=== PATIENT | male | born 1985 | race African-American/Black ===

== ENCOUNTER 2018-07-24 07:52 | Emergency (ER) | payer OTHER ==
[~2018-07-24] VITALS: Ht 172.7 cm; Wt 81.0 kg
[2018-07-24] MEDS ORDERED: NAPR-856 PO (08:29)
[2018-07-24] MEDS ORDERED: BACL20TA PO (08:29)
[2018-07-24] MEDS ORDERED: KETOROLAC 30 MG/1 ML IM ONE (08:30)
[2018-07-24] MEDS ORDERED: KETOROLAC 30 MG/1 ML ONE (08:31)
[2018-07-24 10:03] VITALS: BP 158/82
== END 2018-07-24 10:06 | disposition home or self-care (01) ==
LOC: ED 09:50
DX: S46.911A Strain of unspecified muscle, fascia and tendon at shoulder and upper arm level, right arm, initial encounter (principal); S39.012A Strain of muscle, fascia and tendon of lower back, initial encounter; X50.1XXA Overexertion from prolonged static or awkward postures, initial encounter; Y93.89 Activity, other specified; Y92.69 Other specified industrial and construction area as the place of occurrence of the external cause; Y99.0 Civilian activity done for income or pay
CPT/HCPCS: 96372; 99283; J1885